=== PATIENT | male | born 1975 | race Caucasian/White ===

== ENCOUNTER 2023-01-07 10:49 | Outpatient (CLI) | payer OTHER ==
[2023-01-07 17:45] LABS: BASOPHILS # (AUTO) 0.1 10^3/uL (0.0-0.1); EOSINOPHILS # (AUTO) 0.2 10^3/uL (0.0-0.7); EOSINOPHILS % (AUTO) 3.8 %; HCT - HEMATOCRIT 51.4 % (42.0-52.0); HGB - HEMOGLOBIN 17.2 g/dL (14.0-18.0); LYMPHOCYTES # (AUTO) 1.9 10^3/uL (1.5-3.5); LYMPHOCYTES % (AUTO) 31.9 %; MEAN CORPUSCULAR HGB CONC 33.5 g/dL (32.0-36.0); MEAN CORPUSCULAR VOLUME 89.7 fL (80.0-94.0); MEAN PLATELET VOLUME 10.3 fL (7.4-11.4); MONOCYTES # (AUTO) 0.5 10^3/uL (0.0-1.0); MONOCYTES % (AUTO) 8.6 %; NEUTROPHILS # (AUTO) 3.3 10^3/uL (1.5-6.6); NEUTROPHILS % (AUTO) 54.4 %; PLT - PLATELET COUNT 286 10^3/uL (130-450); RED BLOOD COUNT 5.73 10^6/uL (4.70-6.10); RED CELL DISTRIBUTION WIDTH 12.9 % (12.0-15.0); WHITE BLOOD COUNT 6.1 x10^3/uL (4.8-10.8)
[2023-01-07 17:53] LABS: ALBUMIN 4.4 g/dL (3.2-5.5); ALBUMIN/GLOBULIN RATIO 1.6 (1.0-2.2); ALKALINE PHOSPHATASE 63 IU/L (42-121); ALT ALANINE AMINOTRANSFERASE 22 IU/L (10-60); AST ASPARTATE AMINOTRANSFERASE 18 IU/L (10-42); BILIRUBIN,TOTAL 0.7 mg/dL (0.2-1.0); BUN - BLOOD UREA NITROGEN 15 mg/dL (6-20); CALCIUM 9.3 mg/dL (8.5-10.3); CARBON DIOXIDE - CO2 28 mmol/L (21-32); CHLORIDE 105 mmol/L (101-111); CHOL/HDL RATIO 4.6 (<5.0); CHOLESTEROL 180 mg/dL; CREATININE 0.9 mg/dL (0.6-1.3); GFR - MDRD 90 (>89); GLUCOSE 87 mg/dL (74-104); HDL CHOLESTEROL 39 mg/dL; LDL CHOLESTEROL,CALCULATED 120 mg/dL; LDL/HDL RATIO 3.1 (<3.6); POTASSIUM 4.4 mmol/L (3.5-4.5); SODIUM 138 mmol/L (135-145); TOTAL PROTEIN 7.1 g/dL (6.4-8.9); TRIGLYCERIDES 103 mg/dL (48-352); VLDL CHOLESTEROL 21 mg/dL
== END 2023-01-07 10:50 | disposition home or self-care (01) ==
LOC: LAB.N 10:49
PROVIDERS: ATTEND Nurse Practitioner
DX: R53.83 Other fatigue (principal); Z13.220 Encounter for screening for lipoid disorders
CPT/HCPCS: 36415; 80053; 80061; 83721; 85025

== ENCOUNTER 2023-01-07 10:51 | Outpatient (CLI) | payer OTHER | END 2023-01-07 10:52 | disposition home or self-care (01) | LOC: LAB.N 10:51 | PROVIDERS: ATTEND Nurse Practitioner | DX: Z53.9 Procedure and treatment not carried out, unspecified reason (principal) ==